=== PATIENT | female | born 1935 | race African-American/Black ===

== ENCOUNTER 2023-10-18 16:10 | Emergency (ER) | payer OTHER, SELFPAY ==
[2023-10-18 16:17] VITALS: BP 162/98
--- NOTE | 2023-10-18 16:24 | ED.PDOC.TR ---
ED Provider Triage
-
Patient seen by provider in Triage?: Seen in Triage
Pt was assessed in triage as a rapid assessment to expedite ongoing care with expectation of further assessment.
88-year-old female presenting to the emergency department today with concerns of feeling generally weak and tired lightheaded today. Does have history of anemia. Patient generally well-appearing no acute distress here at arrival. Plan to get labs
EKG urinalysis for further assessment.
[2023-10-18 16:38] LABS: % Basophils 0.7 % (0-2); % Eosinophils 3.2 % (0-6); % Immature Granulocytes 0.2 % (0-0.5); % Lymphocytes 27.6 % (20.5-51.1); % Monocytes 7.6 % (1.7-9.3); % Neutrophils 60.7 % (42.2-75.2); Absolute Eosinophils 0.1 10^3/uL (0-0.7); Absolute Lymphocytes 1.2 10^3/uL (1.2-3.4); Absolute Monocytes 0.3 10^3/uL (0.1-0.6); Absolute Neutrophils 2.6 10^3/uL (1.4-6.5); Hematocrit 39.9 % (37.0-47.0); Hemoglobin 12.6 g/dL (12.0-16.0); Mean Corp Hgb Conc. 31.6 g/dL (33.0-37.0); Mean Corpuscular Hgb 24.5 pg (27.0-31.0); Mean Corpuscular Volume 77.6 fL (81.0-99.0); Mean Platelet Volume 9.4 fL (7.4-10.4); Nucleated Red Blood Cells % 0 %; Platelet Count 212 10^3/uL (130-400); Red Blood Cell Count 5.14 10^6/uL (4.20-5.40); Red Cell Dist. Width 14.3 % (11.5-14.5); White Blood Cell Count 4.4 10^3/uL (4.8-10.8)
[2023-10-18 16:52] LABS: ALT (SGPT) 13 U/L (0-35); AST (SGOT) 24 U/L (14-36); Alkaline Phosphatase 68 U/L (38-126); Blood Urea Nitrogen 20 mg/dl (7-17); Calcium 10.6 mg/dl (8.4-10.2); Carbon Dioxide 26 mmol/L (22-30); Chloride 106 mmol/L (98-107); Glucose 93 mg/dl (70-99); Potassium 4.7 mmol/L (3.5-5.1); Sodium 139 mmol/L (135-145); Total Bilirubin 0.6 mg/dl (0.2-1.3); Total Protein 7.3 g/dl (6.3-8.2); eGFR > 60.00
[2023-10-18 17:24] LABS: TSH Reflex To Free T4 2.27 uIU/ml (0.47-4.68)
[2023-10-18 18:37] VITALS: BP 150/83
[2023-10-18 18:40] VITALS: BMI 24.6
--- NOTE | 2023-10-18 18:51 | ED.GENMED ---
History of Present Illness
General
Chief Complaint: Dizziness
Source: patient
Exam Limitations: none
Time Seen by Provider: 10/18/23 18:51
Travel History
Have you had any contact with someone who has COVID-19?: No
Do you have any symptoms of coronavirus? Fever > 100 degrees, chills, cough, shortness of breath, sore throat, loss of taste or smell, muscle aches, or headache?: No
History of Present Illness
History of Present Illness:
88-year-old female complaining of disequilibrium. Describes his dizziness. She felt this way when she woke up this morning. No headache no new visual issues. No other focal weakness. Has improved throughout the day. No history of same.
Past History
Past History
ED Past Medical History: CHF, Hypercholesterolemia, Hypothyroidism and Other (Agree with documented past medical history); Negative IDDM or NIDDM
ED Past Surgical History: Orthopedic and Other (Cataract surgery. Ganglion surgery)
Social History
Tobacco: Non-smoker
Living: alone
Review of Systems
Review of Systems
All Other Systems: Not applicable
Constitutional: Denies fever
Respiratory: Reports no symptoms
Cardiac: Reports no symptoms; Denies chest pain or syncope
ABD/GI: Reports no symptoms; Denies bloody stools or black stools
Phy Exam
Physical Exam
Physical Exam:
GENERAL: Alert and oriented in no apparent distress
EYE: Orbits normal. Extraocular muscles intact. Questionable mild nystagmus to the left. No vertical nystagmus
NECK: Supple. No thyroid palpable
ENT: Pharynx without erythema
CARDIAC: Regular rate and rhythm without any obvious murmurs.
LUNGS: Clear breath sounds,normal
ABDOMEN: Soft, without focal tenderness or distention
NEUROLOGICAL: Alert and oriented , speech normal. Cranial nerves II through XII intact. [id number] normal. Upper and lower extremity strength normal. Light touch intact
SKIN: Warm and dry, no rash or lesion, no discoloration, skin intact.
MUSCULOSKELETAL: No edema,no deformity.Good color
PSYCH: Normal and appropriate interaction.
Course
Orders/Labs/Results
Orders:
Orders
10/18/23 16:23
EKG [Electrocardiogram (*1)] Urgent
Reason for Study: Fatigue / Weakness
10/18/23 16:24
EKG- Treatment ONCE
10/18/23 16:33
CBC/With Diff [Complete Blood Count/With Diff] Urgent
CMP [Comprehensive Metabolic Panel] Urgent
TSH Reflex To Free T4 Urgent
10/18/23 18:49
Urinalysis Reflex To Culture Urgent
Date Specimen was Collected: 10/18/23
Time Specimen was Collected: 18:48
Urine Microscopic Reflex Cult Urgent
Urine Culture Urgent
ELIANE Source: U
Specimen Description:
Date Specimen was Collected: 10/18/23
Time Specimen was Collected: 18:48
10/18/23 18:59
CT Head W/o Iv Contrast Urgent
Comment:
Reason For Exam: Disequilibrium
10/18/23 20:28
Aspirin Chewable [Low Strength Aspirin] 81 mg PO NOW STA
Abnormal Lab Results
10/18/23 10/18/23
16:33 18:49
WBC 4.4 L 10^3/uL
(4.8-10.8)
MCV 77.6 L fL
(81.0-99.0)
MCH 24.5 L pg
(27.0-31.0)
MCHC 31.6 L g/dL
(33.0-37.0)
BUN 20 H mg/dl
(7-17)
Calcium 10.6 H mg/dl
(8.4-10.2)
Ur Occult Blood Reflex Trace A
(Negative)
Leukocyte Esterase Rfl 2+ A
(Negative)
Urine WBC (Reflex) 50-60 A /HPF
(0-5)
Urine Bacteria (Reflex) Many A
(Negative)
10/18/23 16:33
10/18/23 16:33
Vital Signs
Initial and Last Documented VS:
Initial Vital Signs
Temp Pulse Resp BP Pulse Ox
98.1 F 78 18 162/98 99
10/18/23 16:17 10/18/23 16:17 10/18/23 16:17 10/18/23 16:17 10/18/23 16:17
Last Documented Vital Signs
Temp Pulse Resp BP Pulse Ox
98.2 F 73 13 166/90 99
10/18/23 20:00 10/18/23 19:35 10/18/23 18:45 10/18/23 19:37 10/18/23 16:17
MDM/Problems Addressed
Differential Diagnosis Includes:
Patient describing disequilibrium that she woke up with this morning. Moderate improvement. No true positional vertigo. No other neurologic symptoms. Clinically very medically stable. Will obtain a CT as a screen and see how the patient
ambulates. Patient does have some ringing in her right ears at times.
*Radiology
Radiology exam reviewed: radiology read reviewed (No acute findings)
*Pulse Oximetry
Patient hypoxic: no
*EKG
Interpreted by ED Provider?: Yes
Interpretation: abnormal
Comparison EKG: changes noted
Heart Rate: 68
Rate: normal
Rhythm: sinus
Violet: normal axis
Interval: normal interval
QRS Pattern: poor R-wave progression
Ischemia: non-specific ST changes
*Critical Care Note
Total Time (30-74mins, 75-104mins- exclusive of procedures): Not Applicable
Data Reviewed
Review of Other/Old Records Reveals: Labs and Testing
Update Note
Update Note:
Patient ambulated well with her walker. She apparently felt slightly lightheaded but very minimal symptoms. Khang her findings and explained that theoretically this still could have been a small stroke although NIH is 0. Offered and actually
encouraged admission and observation given the mild disequilibrium and the fact that she lives alone. She states she would like to go home and feels she is safe at home. She is aware of the risks.
ED Attending Note
-
Portions of this chart may have been created with voice recognition software.� Occasional wrong word or��sound alike� substitutions may have occurred due to the inherent limitations of voice recognition software.
Discharge Plan
Departure
Patient Disposition: Home (Routine Discharge)
Date of Disposition: 10/18/23
Time of Disposition: 20:27
Patient with high blood pressure during this ER visit?: Yes
Discharge Problem:
Disequilibrium
Instructions: Vertigo (a Type of Dizziness) (DC), BLOOD PRESSURE
Activity Restrictions/Additional Instructions:
I recommend taking a baby aspirin per day
Close follow-up with your primary physician
Please return if your dizziness gets worse, any other neurologic symptoms or you feel unsafe at home.
Interventions
Interventions:
*Risk Screen - Suicide Last Done: 10/18/23 18:41
*General Assessment Last Done: 10/18/23 18:41
*Neglect/Abuse Screening Last Done: 10/18/23 18:41
ED- Fall Risk Assessment Last Done: 10/18/23 18:43
*ED COVID-19 Vaccine History Last Done: 10/18/23 18:41
*Nursing Disposition Last Done: 10/18/23 22:02
ED- Neurological Assessment Last Done: 10/18/23 18:43
ED- Cardiac Assessment Last Done: 10/18/23 18:43
Discharge Date and Time
Discharge Date/Time: 10/18/23 22:03
Print Language: KENYAN
[2023-10-18 18:57] LABS: Urine Albumin Negative (Neg - Trace); Urine Bilirubin Negative (Negative); Urine Character Clear (Clear); Urine Color Yellow; Urine Glucose Negative (Negative); Urine Ketone Negative (Negative); Urine Leukocyte 2+ (Negative); Urine Nitrite Negative (Negative); Urine Occult Blood Trace (Negative); Urine Urobilinogen Negative (Neg - 1+)
[2023-10-18 19:12] LABS: Urine Squamous Cell 16-20 /LPF (Few)
[2023-10-18 19:13] LABS: Urine White Cell 50-60 /HPF (0-5)
[2023-10-18 19:14] LABS: Urine Bacteria Many (Negative); Urine Red Blood Cell 0-2 /HPF (0-2)
[2023-10-18 19:33] VITALS: BP 135/67
[2023-10-18 19:37] VITALS: BP 166/90
[2023-10-18] MEDS: LOW STRENGTH ASPIRIN 81 MG PO (20:45)
== END 2023-10-18 22:03 | disposition home or self-care (01) ==
LOC: EMR 16:10
PROVIDERS: Physician Assistant; EMERGENCY PHYSICIAN Emergency Medicine; FAMILY PHYSICIAN Emergency Medicine
DX: E87.8 Other disorders of electrolyte and fluid balance, not elsewhere classified (principal); E03.9 Hypothyroidism, unspecified; E78.00 Pure hypercholesterolemia, unspecified; I50.9 Heart failure, unspecified
CPT/HCPCS: 99284; 70450; 80053; 81003; 81015; 84443; 85025; 87086; 93005

== ENCOUNTER → 2023-12-07 16:00 | Outpatient (REF) | payer OTHER, SELFPAY | LOC: RAD 16:00 | PROVIDERS: ATTENDING PHYSICIAN Obstetrics & Gynecology Gynecology; FAMILY PHYSICIAN Emergency Medicine | DX: R87.618 Other abnormal cytological findings on specimens from cervix uteri (principal); R10.2 Pelvic and perineal pain | CPT/HCPCS: 76856 ==

== ENCOUNTER → 2024-07-10 14:06 | Outpatient (REF) | payer OTHER, SELFPAY | LOC: RAD 14:06 | PROVIDERS: ATTENDING PHYSICIAN Emergency Medicine | DX: U07.1 COVID-19 (principal) | CPT/HCPCS: 71046 ==

== ENCOUNTER → 2024-08-09 10:18 | Outpatient (REF) | payer OTHER, SELFPAY | LOC: PAVMRI 10:18 | PROVIDERS: ATTENDING PHYSICIAN Obstetrics & Gynecology Gynecology; FAMILY PHYSICIAN Emergency Medicine | DX: R87.618 Other abnormal cytological findings on specimens from cervix uteri (principal); N95.0 Postmenopausal bleeding | CPT/HCPCS: 72197; A9575 ==

== ENCOUNTER 2025-01-30 13:19 | Outpatient (RCR) | payer OTHER, SELFPAY | END 2025-01-30 23:59 | disposition home or self-care (01) | LOC: RPT 13:19 | PROVIDERS: ATTENDING PHYSICIAN Physician Assistant Medical; FAMILY PHYSICIAN Emergency Medicine | DX: I89.0 Lymphedema, not elsewhere classified (principal); Z73.6 Limitation of activities due to disability | CPT/HCPCS: 97162; 97530 ==

== ENCOUNTER 2025-03-04 08:31 | Outpatient (RCR) | payer OTHER, SELFPAY | END 2025-03-04 23:59 | disposition home or self-care (01) | LOC: RPT 08:31 | PROVIDERS: ATTENDING PHYSICIAN Physician Assistant Medical; FAMILY PHYSICIAN Emergency Medicine | DX: I89.0 Lymphedema, not elsewhere classified (principal); Z73.6 Limitation of activities due to disability; R26.89 Other abnormalities of gait and mobility; M79.605 Pain in left leg; M79.604 Pain in right leg | CPT/HCPCS: 97110; 97530 ==